=== PATIENT | female | born 1990 | race Caucasian/White ===

== ENCOUNTER 2018-02-24 11:27 | Emergency (ER) | payer SELFPAY ==
[2018-02-24] MEDS: IBUPROFEN 800 MG TAB PO (12:00)
== END 2018-02-24 13:22 | disposition home or self-care (01) ==
LOC: FTE 11:27
DX: M25.512 Pain in left shoulder (principal); Z04.1 Encounter for examination and observation following transport accident
CPT/HCPCS: 73030; 73060; 99283-25